=== PATIENT | female | born 1955 | race Caucasian/White ===

== ENCOUNTER 2020-08-27 11:54 | Emergency (ER) | payer OTHER ==
[2020-08-28 08:06] LABS: SARS-CoV-2 NAA Not Detected (Not Detected)
== END 2020-08-27 12:08 | disposition home or self-care (01) ==
LOC: JVIRT 11:54
DX: Z20.822 Contact with and (suspected) exposure to COVID-19 (principal)
CPT/HCPCS: C9803; G2251-GT; U0003; U0005

== ENCOUNTER 2020-09-15 08:17 | Emergency (ER) | payer OTHER ==
[2020-09-15 08:46] VITALS: BP 166/98; PULSE 106; TEMP 97.5; BMI 25.8
== END 2020-09-15 08:54 | disposition home or self-care (01) ==
LOC: FER 08:17
DX: S09.90XA Unspecified injury of head, initial encounter (principal); M54.2 Cervicalgia
CPT/HCPCS: 99281-25

== ENCOUNTER 2021-08-07 08:56 | Emergency (ER) | payer OTHER ==
[2021-08-07 09:22] VITALS: BP 164/72; PULSE 102; TEMP 98.5; BMI 25.3
[2021-08-07 10:25] LABS: ALBUMIN 3.8 g/dl (3.4-5.0); BILIRUBIN,TOTAL 0.6 mg/dl (0.2-1); CALCIUM 9.5 mg/dl (8.5-10); CREATININE 0.7 mg/dl (0.55-1.3); TOT PROT 6.7 g/dl (6.4-8.2)
[2021-08-07 11:06] LABS: BASO % 0.8 % (0-2.0); EOS % 0.3 % (0-4.5); HEMATOCRIT 43.6 % (32.4-45.2); HEMOGLOBIN 14.9 GM/dL (10.7-15.3); LYMPH % 13.9 % (8-40); MCH 29.4 pg (25.7-33.7); MCHC 34.2 g/dl (32.0-36.0); MEAN CELL VOLUME 86.1 fl (80-96); MEAN PLT VOLUME 8.6 fl (7.5-11.1); MONO % 6.4 % (3.8-10.2); NEUT % 78.6 % (42.8-82.8); PLATELET COUNT 235 10^3/uL (134-434); RBC 5.06 M/mm3 (3.60-5.2); RDW 14.8 % (11.6-15.6); WHITE BLOOD COUNT 7.2 K/mm3 (4.0-10.0)
== END 2021-08-07 12:50 | disposition home or self-care (01) ==
LOC: FER 08:56
DX: R55 Syncope and collapse (principal)
CPT/HCPCS: 36415; 71046-TC-FY; 80053; 84484; 85025; 93005; 99285-25